=== PATIENT | female | born 1950 | race Two or more races ===

== ENCOUNTER 2025-02-26 19:28 | Emergency (ER) | payer MEDICARE ==
[~2025-02-26] VITALS: Ht 154.9 cm; Wt 74.8 kg
[2025-02-26 20:18] LABS: BASOPHILS # (AUTO) 0.1 K/UL (0.0-0.2); BASOPHILS % (AUTO) 0.5 % (0.0-2.0); CALCIUM 8.7 mg/dL (8.5-10.1); CARBON DIOXIDE 27 mmol/L (21-32); CHLORIDE 104 mmol/L (98-107); CREATININE 1.8 mg/dL (0.6-1.3); DIFFERENTIAL COMMENT 1; EOSINOPHILS # (AUTO) 0.1 K/uL (0.0-0.7); EOSINOPHILS % (AUTO) 1.2 % (0.0-7.0); GLUCOSE 131 mg/dL (74-106); HEMATOCRIT 35.7 % (31.2-41.9); HEMOGLOBIN 12.1 g/dL (10.9-14.3); LYMPHOCYTES # (AUTO) 3.3 K/uL (0.8-4.8); LYMPHOCYTES % (AUTO) 35.6 % (20.5-51.5); MEAN CORPUSCULAR HGB CONC 34 g/dL (32.3-35.6); MEAN CORPUSCULAR VOLUME 94.1 fL (75.5-95.3); MONOCYTES # (AUTO) 0.8 K/uL (0.1-1.30); MONOCYTES % (AUTO) 8.6 % (0.0-11.0); NEUTROPHILS % (AUTO) 54.1 % (38.5-71.5); PLATELET COUNT (AUTO) 220 K/uL (179-408); POTASSIUM 3.1 mmol/L (3.5-5.1); RED CELL DISTRIBUTION WIDTH 14.5 % (12.3-17.7); SODIUM SERUM 143 mmol/L (136-145); UREA NITROGEN, BLOOD 28 mg/dL (7-18); WHITE BLOOD COUNT (AUTO) 9.3 K/uL (3.8-11.8)
[2025-02-26] MEDS ORDERED: NITROGLYCERIN OINT 1 GM PACKET TP ONE (20:28)
[2025-02-26] MEDS ORDERED: hydrALAZINE HCL 20 MG/1 ML VIAL ONE (20:29)
[2025-02-26 20:30] LABS: ALANINE AMINOTRANSFERASE 25 U/L (14-59); ALBUMIN 3.3 g/dL (3.4-5.0); ALKALINE PHOSPHATASE 211 U/L (50-136); ASPARTATE AMINOTRANSFERASE 34 U/L (15-37); BILIRUBIN,DIRECT 0.2 mg/dL (0.0-0.2); BILIRUBIN,TOTAL 0.5 mg/dL (0.2-1.0); NT-PRO BNP 6347 pg/mL (0-125); TOTAL PROTEIN, SERUM 6.7 g/dL (6.4-8.2)
[2025-02-26 20:51] VITALS: BP 184/99
[2025-02-26] MEDS: NITROGLYCERIN OINT 1 GM PACKET TP ONE (20:51)
[2025-02-26] MEDS: hydrALAZINE HCL 20 MG/1 ML VIAL IV ONE (20:51)
[2025-02-26] MEDS ORDERED: POTASSIUM CHLORIDE 20 MEQ TAB.PRT.SR ONE (22:17)
[2025-02-26] MEDS: POTASSIUM CHLORIDE 20 MEQ TAB.PRT.SR PO ONE (22:18)
[2025-02-27] MEDS ORDERED: PRAV10TA40 PO (02:03)
[2025-02-27] MEDS ORDERED: SUCR1ORA15 PO (02:03)
[2025-02-27] MEDS ORDERED: OXYB5TAB16 PO (02:03)
[2025-02-27] MEDS ORDERED: METO25TA6 PO (02:03)
[2025-02-27] MEDS ORDERED: APIX2.5T PO (02:03)
[2025-02-27] MEDS ORDERED: HYDR-894 PO (02:03)
[2025-02-27] MEDS ORDERED: AMLO-212 PO (02:03)
[2025-02-27 03:25] VITALS: O2SAT 94
== END 2025-02-27 05:03 | disposition short-term general hospital (02) ==
LOC: ER 20:37
DX: I11.0 Hypertensive heart disease with heart failure (principal); I50.9 Heart failure, unspecified; N28.9 Disorder of kidney and ureter, unspecified; R60.0 Localized edema; R07.9 Chest pain, unspecified; R40.4 Transient alteration of awareness; E87.6 Hypokalemia; Z79.01 Long term (current) use of anticoagulants; Z86.73 Personal history of transient ischemic attack (TIA), and cerebral infarction without residual deficits; Z87.39 Personal history of other diseases of the musculoskeletal system and connective tissue
CPT/HCPCS: 99285; 96374; 70450; 71045; 80076; 80048; 83880; 85025; 84484 ×2; 36415; 93005; J0360; A4606; A4663